=== PATIENT | male | born 1975 | race Caucasian/White ===

== ENCOUNTER 2021-02-17 13:57 | Outpatient (REF) | payer OTHER, SELFPAY | END 2021-02-17 13:58 | disposition home or self-care (01) | LOC: HO.LNP 13:57 | PROVIDERS: Visit Provider Family Medicine | DX: Z20.822 Contact with and (suspected) exposure to COVID-19 (principal); B34.9 Viral infection, unspecified | CPT/HCPCS: U0003; U0005 ==

== ENCOUNTER → 2021-12-30 15:49 | Outpatient (REF) | payer OTHER, SELFPAY | LOC: HO.SL 15:49 | PROVIDERS: PCP Internal Medicine; Visit Provider Nurse Practitioner Family | DX: R06.83 Snoring (principal); R40.0 Somnolence | CPT/HCPCS: 95806 ==

== ENCOUNTER 2023-04-09 10:12 | Emergency (ER) | payer OTHER, SELFPAY ==
[2023-04-09 10:14] VITALS: BP 138/97; BP 150/92; PULSE 66; PULSE 82; RESP 18; TEMP 36.9; O2SAT 100; O2SAT 98; BMI 30.3
--- NOTE | 2023-04-09 11:02 | ED.BACK ---
HPI - Back Pain/Injury General Chief Complaint: Back Pain/Injury Stated Complaint: BACK PAIN, H/O HERNIATED DISC Time Seen by Provider: 04/09/23 10:17 Source: patient, family () and EMS Mode of arrival: EMS Limitations: no limitations History of Present Illness HPI Narrative: 47-year-old male with history of hypertension, hyperlipidemia presents the ER with complaints of lower back pain with radiation down the right leg for the last 3 weeks. Patient reports while working he stepped back missing his step and stepping into a pothole with his right foot causing a fall with subsequent back pain. patient reports he was initially evaluated at [facility]. He was discharged home and has followed up with his primary care doctor. He is having difficulty establishing a plan with workmen's Comp. He has trialed several different oral medications and is currently on gabapentin 300 mg 3 times daily and Flexeril 10 mg at bedtime. He reports had MRI 6 days ago. He has been having continued pain. He has been waiting for his MRI result. He did speak to his primary care doctor this morning on the phone and he was told he has bulging discs in his lumbar spine and is waiting for referral to see a personnel specialist. He was sent into the ER by his primary care for better pain management. He does report that he has pain which radiates down the right leg. He does have numbness and tingling in his right leg. He denies any numbness in the groin. No bowel or bladder incontinence. No fevers or chills. Related Data Home Medications Medication Instructions Recorded Confirmed sertraline 150 mg capsule 150 mg PO DAILY 09/02/22 09/02/22 Previous Rx's Medication Instructions Recorded amoxicillin 500 mg capsule 500 mg PO Q12H 10 days #20 caps 09/02/22 cyclobenzaprine 10 mg tablet 10 mg PO TID PRN muscle spasm #15 04/09/23 tabs ibuprofen 600 mg tablet 600 mg PO Q8H PRN fever or pain 04/09/23 #30 tabs oxycodone 5 mg tablet 5 mg PO Q8H PRN pain #15 tabs 04/09/23 Allergies Allergy/AdvReac Type Severity Reaction Status Date / Time No Known Allergies Allergy Verified 09/02/22 11:36 [No Known Allergies*] Review of Systems Review of Systems: Yes all other systems are reviewed and are negative Constitutional: Constitutional: Reports no additional constitutional complaints, Denies body ache(s), Denies chills, Denies fever(s), Denies headache(s) and Denies weakness Eyes: Eyes: Reports no additional eye complaints and Denies change in vision ENT: Reports system reviewed and no additional complaints, except as documented, Denies dizziness, Denies headache(s), Denies nasal congestion, Denies nasal discharge and Denies neck pain Cardiovascular: Cardiovascular: Reports no additional cardiovascular complaints, Denies chest pain, Denies leg edema and Denies dyspnea Respiratory: Respiratory: Reports no additional respiratory complaints, Denies cough and Denies dyspnea Gastrointestinal: Gastrointestinal: Reports no additional gastrointestinal complaints, Denies abdominal pain, Denies diarrhea, Denies nausea and Denies vomiting Genitourinary: Genitourinary: Denies urinary incontinence Musculoskeletal: Musculoskeletal: Reports no additional musculoskeletal complaints, Reports back pain, Denies arthralgias, Denies joint swelling, Denies neck pain, Denies numbness, Reports radiating pain into limb and Denies tingling Integumentary/Breasts: Skin/Breast: Reports system reviewed and no additional complaints, except as docu and Denies rash Neurologic: Reports system reviewed and no additional complaints, except as documented, Denies Abnormal speech present, Denies dizziness, Denies headache(s), Denies numbness, Denies tingling and Denies weakness PMFSH Past Medical History Attestation statement: The following information was validated with the patient. Source: old records reviewed and nursing notes reviewed Medical History Kidney stones Surgical History Hx of appendectomy Social History Social History Alcohol intake: current Alcohol intake frequency: a few times a month Patient Tobacco Use Status: Never used Tobacco Advance Directives: Yes Advance Directives Information Provided: Yes Advance Directives on File: No Physical Exam Vital Signs: Vital Signs: Last Vital Signs Temp 97.6 F 04/09/23 12:17 Pulse 65 04/09/23 12:17 Resp 16 04/09/23 12:17 BP 140/84 H 04/09/23 12:17 Pulse Ox 98 10/08/23 12:17 O2 Del Method Room Air 04/09/23 12:17 BMI result Body Mass Index 30.3 Const: General: cooperative, healthy appearing, comfortable and no acute distress Orientation/consciousness: patient oriented x3 Limitations: no limitations HEENT: Head: Yes normal to inspection Ears: hearing grossly normal bilaterally General nose exam: Normal external nose present Face and sinus: Yes normal facial exam Mouth: Normal oral and palatal mucosa present Throat: Yes posterior oropharynx normal Eyes: General: appearance normal, both eyes and all related structures Pupils: Equal, round and reactive pupils present Neck: Neck: Yes normal visual inspection Chest: Chest palpation & inspection: normal inspection of the chest Resp: Effort & Inspection: normal respiratory effort Auscultation: clear to auscultation bilaterally Cardio: Rate: regular rate Rhythm: regular rhythm Peripheral pulses: Peripheral pulses 2+ throughout GI: Inspection: Yes normal to inspection Palpation (GI): Soft to palpation and nontender Auscultation: normal bowel sounds : General: Yes no CVA tenderness Back/Spine/Pelvis: Other: There is tenderness the right lumbar paraspinal area no midline tenderness, step-offs deformities. Pain is worsened with right straight leg raise Back: no CVA tenderness Thoracic/Lumbar Spine: thoracic and lumbar spine normal to inspection Skin: General skin exam: no rashes or lesions noted Neuro: General: patient oriented x3, moves all extremities, no focal motor deficits, normal sensation to monofilament and Unable to assess gait Cranial nerves: Yes Equal, round and reactive pupils present Cognition (Neuro): normal cognition Speech: No Abnormal speech present Gait exam (Neuro): Unable to assess gait Motor exam (neuro): 5/5 motor strength present throughout Sensory Exam: Normal double simultaneous stimulation for sensation Deep tendon reflexes (DTR's): Right patellar reflex intensity grade: 2+ and Left patellar reflex intensity grade: 2+ Extrem: General: Yes normal to inspection Course Course Course Narrative: 1230-Pain 1 hr post initial round of medications is improving. will repeat dose for better pain control Reevaluation(s) Reevaluation #1: 1340- Patient feels much improved. Patient is up and ambulatory. Plan for discharge home with pain control and follow-up with primary care. Reviewed worrisome signs and symptoms of when to return to the emergency room. Comfortable plan for discharge home. Medications Administered Discontinued Medications Generic Name Dose Route Start Last Admin Trade Name Alondra PRN Reason Stop Dose Admin Dexamethasone Sodium Phosphate 10 mg 04/09/23 11:21 04/09/23 11:31 Dexamethasone Sod Phosphate 10 Mg/Ml Vial IVPUSH 04/09/23 11:22 10 mg ONCE ONE Administration Ketorolac Tromethamine 30 mg 04/09/23 11:20 04/09/23 11:31 Ketorolac Tromethamine 30 Mg/Ml Vial IVPUSH 04/09/23 11:21 30 mg ONCE ONE Administration Morphine Sulfate 4 mg 04/09/23 11:20 04/09/23 11:33 Morphine Sulfate 4 Mg/Ml Cartridge IVPUSH 04/09/23 11:21 4 mg ONCE ONE Administration Protocol Morphine Sulfate 4 mg 04/09/23 12:34 04/09/23 12:40 Morphine Sulfate 4 Mg/Ml Cartridge IVPUSH 04/09/23 12:35 4 mg ONCE ONE Administration Protocol Ondansetron HCl 4 mg 04/09/23 11:20 04/09/23 11:28 Ondansetron Hcl 4 Mg/2 Ml Vial IVPUSH 04/09/23 11:21 4 mg ONCE ONE Administration Medical Decision Making Medical Decision Making MDM Narrative: 47-year-old male with history of hypertension, hyperlipidemia presents the ER with complaints of lower back pain with radiation down the right leg for the last 3 weeks. Patient reports while working he stepped back missing his step and stepping into a pothole with his right foot causing a fall with subsequent back pain. patient reports he was initially evaluated at [facility]. He was discharged home and has followed up with his primary care doctor. He is having difficulty establishing a plan with workmen's Comp. He has trialed several different oral medications and is currently on gabapentin 300 mg 3 times daily and Flexeril 10 mg at bedtime. He reports had MRI 6 days ago. He has been having continued pain. He has been waiting for his MRI result. He did speak to his primary care doctor this morning on the phone and he was told he has bulging discs in his lumbar spine and is waiting for referral to see a personnel specialist. He was sent into the ER by his primary care for better pain management. He does report that he has pain which radiates down the right leg. He does have numbness and tingling in his right leg. He denies any numbness in the groin. No bowel or bladder incontinence. No fevers or chills. on exam patient has tenderness the right paraspinal lumbar area. This pain is worsened with right straight leg raise. No neurological deficits or red flag symptoms. Patient with recent MRI. Patient is waiting for a referral to see a personnel specialist and has been in close communication with his primary care doctor. He would benefit from better pain management. Therefore we will place an IV and provide Toradol, morphine, decadron for pain control then will re-assess. Differential Diagnosis Differential Diagnoses: The differential diagnosis associated with the presentation includes herniated disc, lumbar radiculopathy low concern for cord compression, cauda equina, epidural abscess, malignancy with no neurological deficits or red flag symptoms, no history of immunocompromise state or IV drug abuse. Admission/Observation Consideration of admission/observation: Escalation of care including admission/observation considered No neurological deficits or red flag symptoms suggest need for emergent MRI, neurosurgery consultation and/or transfer to tertiary care center Independent Historian Clinical information obtained from an independent historian. History obtained from or confirmed by: Spouse and EMS Tests considered The following testing was considered but not selected: No neurological deficits or red flag symptoms suggest need for emergent MRI Prescription Management I considered prescription management with: Pain Medication Discharge Plan Discharge Clinical Impression: Lumbar radiculopathy Patient Disposition: Home, Self-Care Instructions: Lumbar Radiculopathy (ED) Additional Instructions: continue your gabapentin continue with your plan to follow-up with your primary care and outpatient referral Prescriptions: New oxycodone 5 mg tablet 5 mg PO Q8H PRN (Reason: pain) Qty: 15 0RF Rx Instructions: Partial Fill upon patient request. ibuprofen 600 mg tablet 600 mg PO Q8H PRN (Reason: fever or pain) Qty: 30 0RF cyclobenzaprine 10 mg tablet 10 mg PO TID PRN (Reason: muscle spasm) Qty: 15 0RF No Action sertraline 150 mg capsule 150 mg PO DAILY amoxicillin 500 mg capsule 500 mg PO Q12H 10 Days Qty: 20 0RF Referrals: Victor Hugo Guajardo MD, PhD [Physician] - 1 week Stand Alone Forms: Work/School Release
[2023-04-09 12:17] VITALS: BP 140/84; PULSE 65; RESP 16; TEMP 36.4; O2SAT 98
== END 2023-04-09 13:56 | disposition home or self-care (01) ==
PROVIDERS: Emergency Provider Emergency Medicine; PCP Registered Nurse
DX: M54.16 Radiculopathy, lumbar region (principal); M54.50 Low back pain, unspecified; Z79.899 Other long term (current) drug therapy
CPT/HCPCS: 96374; 96375; 96376; 99283; 99284; J1100; J1885; J2270; J2405

== ENCOUNTER 2023-06-29 04:23 | Emergency (ER) | payer OTHER, SELFPAY ==
[2023-06-29 04:35] VITALS: BP 132/73; BP 132/80; PULSE 80; PULSE 86; RESP 20; TEMP 37; O2SAT 97; BMI 31.6
[2023-06-29 05:30] VITALS: BP 131/74; PULSE 88; RESP 20; O2SAT 95
[2023-06-29 05:40] LABS: COVID-19 Test Negative (Negative); IDNOW Serial# 08D9AD1C; IDNOW Serial# BCCEAD1C; Influenza A Negative (Negative); Influenza B2 Negative (Negative)
[2023-06-29 06:03] VITALS: BP 114/60; PULSE 80; RESP 16; TEMP 36.9; O2SAT 97
--- NOTE | 2023-06-29 06:23 | ED.GENADULT ---
HPI - General Adult General Chief complaint: General Medical Stated complaint: back pain Time Seen by Provider: 06/29/23 06:20 Source: patient and family Mode of arrival: ambulatory History of Present Illness HPI narrative: 48-year-old male who underwent back surgery on 06/27 through [facility] and states that the following day he was having worse back pain the knee had prior to the surgery, was also having difficulty with urination and went to [facility] where they evaluated him and start him on Flomax. Patient again comes in today stating that his pain is not adequately managed with the pain medication prescribed on 06/27. Related Data Home Medications Medication Instructions Recorded Confirmed sertraline 150 mg capsule 150 mg PO DAILY 09/02/22 09/02/22 Previous Rx's Medication Instructions Recorded amoxicillin 500 mg capsule 500 mg PO Q12H 10 days #20 caps 09/02/22 cyclobenzaprine 10 mg tablet 10 mg PO TID PRN muscle spasm #15 04/09/23 tabs ibuprofen 600 mg tablet 600 mg PO Q8H PRN fever or pain 04/09/23 #30 tabs oxycodone 5 mg tablet 5 mg PO Q8H PRN pain #15 tabs 04/09/23 Allergies Allergy/AdvReac Type Severity Reaction Status Date / Time No Known Allergies Allergy Verified 06/29/23 05:31 [No Known Allergies*] Review of Systems Review of Systems: Pertinent positives and negatives as stated in HPI [facility] Past Medical History Source: nursing notes reviewed Medical History Kidney stones Surgical History Hx of appendectomy Social History Social History Alcohol intake: current Alcohol intake frequency: a few times a month Patient Tobacco Use Status: Never used Tobacco Smoked in Last 30 Days: No Use of substances other than those prescribed or required for medical reasons: No Advance Directives: No Advance Directives Information Provided: No Physical Exam ED Vital Signs: Vital Signs - 24 hr 06/29/23 04:35 06/29/23 05:30 06/29/23 06:03 Temperature 98.6 F 98.5 F Pulse Rate 86 88 80 Respiratory Rate 20 20 16 Blood Pressure 132/73 131/74 114/60 Pulse Oximetry 97 95 97 Oxygen Delivery Method Room Air Room Air Room Air 06/29/23 07:20 Temperature Pulse Rate 75 Respiratory Rate 20 Blood Pressure 121/65 Pulse Oximetry 95 Oxygen Delivery Method Room Air BMI result Body Mass Index 31.6 VITAL SIGNS: Reviewed. GENERAL: Well developed, well nourished, in no acute distress. HEAD: Normocephalic/atraumatic EYES: PERRLA, EOMI EARS: Ext canals without abnormality NOSE: Nares patent bilateral OROPHARYNX: no oral lesions noted, posterior pharynx clear NECK: Supple, no adenopathy LUNGS: Normal breath sounds. No adventitious sounds or accessory muscle use. SpO2<95> CARDIOVASCULAR: Regular rate and rhythm without noted murmurs ABDOMEN: Soft, non-tender, non-distended with bowel sounds. MUSCULOSKELETAL: No tenderness, deformities, or effusions noted on gross inspection. EXTREMITIES: No cyanosis, clubbing or edema. SKIN: Inspection of the skin reveals no rashes NEUROLOGIC: Alert and oriented x 4. Strength and sensation to light touch were grossly intact x 4, DTRs intact. Medications Administered Discontinued Medications Generic Name Dose Route Start Last Admin Trade Name Freq PRN Reason Stop Dose Admin Oxycodone HCl 10 mg 06/29/23 06:50 06/29/23 07:21 Oxycodone Hcl Immed Release 5 Mg Tablet PO 06/29/23 06:51 10 mg ONCE ONE Administration Medical Decision Making Medical Decision Making [facility] Narrative: 48-year-old male postop day 2 from back surgery at [facility] with increased complaints of back pain, no neuro deficits noted, bladder scan after patient voided demonstrates an empty bladder, bowel testing is negative, gave patient 1 dose of 10 mg of oxycodone. I reached out to [facility] and spoke with Dr. Art who informed me that he has no further recommendations and that he will contact the patient's surgeons at 08:00. Patient is otherwise discharged home and instructed to follow-up by calling the office. Differential Diagnosis Differential Diagnoses: The differential diagnosis associated with the presentation includes Please see the discussion above Admission/Observation Consideration of admission/observation: Escalation of care including admission/observation considered Please see the discussion above Consult Healthcare Provider Management of the patient was discussed with: Technical Sales Consultant Please see the discussion above Lab Data [facility] Lab Attestation statement: I reviewed the patient's lab results. Please see the discussion above Labs: Lab Results 12/28/23 Range/Units 05:17 COVID-19 (NANI) Negative (Negative) COVID-19 Clin Com See Note Influenza Type A (ALEXANDRA) Negative (Negative) Influenza Type B (ALEXANDRA) Negative (Negative) Influenza A & B Note See Note Discharge Plan Discharge Clinical Impression: Postoperative back pain Patient Disposition: Home, Self-Care Instructions: Acute Low Back Pain (ED) Additional Instructions: 1. Tylenol 1000 mg, orally, every 6 hours as needed for pain control. Do not exceed 4000 mg within 24 hours. 2. Ibuprofen 400 mg, orally with milk or food, every 6 hours as needed for pain control. 3. Your prescribed oxycodone, you should take this with the 2 above medications to help improve your pain control. 4. I spoke with Dr. Art from [facility], he was the on-call physician, he will reach out to your surgeons at 08:00. I strongly recommend that you close the loop by calling the office yourself today. Return to the ER for any worsening symptoms. Prescriptions: No Action oxycodone 5 mg tablet 5 mg PO Q8H PRN (Reason: pain) Qty: 15 0RF Rx Instructions: Partial Fill upon patient request. ibuprofen 600 mg tablet 600 mg PO Q8H PRN (Reason: fever or pain) Qty: 30 0RF cyclobenzaprine 10 mg tablet 10 mg PO TID PRN (Reason: muscle spasm) Qty: 15 0RF sertraline 150 mg capsule 150 mg PO DAILY amoxicillin 500 mg capsule 500 mg PO Q12H 10 Days Qty: 20 0RF Referrals: Evangelina Pruitt DNP [Primary Care Provider] -
--- NOTE | 2023-06-29 06:44 | PC.NURSE ---
attempting to get in touch with [facility] regarding pt care
[2023-06-29 07:20] VITALS: BP 121/65; PULSE 75; RESP 20; O2SAT 95
[2023-06-29] MEDS: oxyCODONE HCl Immed Release 5 MG TABLET 10 MG PO (07:21)
--- NOTE | 2023-06-29 07:31 | PC.NURSE ---
pt is alert and oriented, skin pwd, respirations even and unlabored. pt reports having herniated disk surgery on 06/27/23 at [facility] and now is in extreme pain, pt is having difficulties sitting up and walking do to the pain, pt called the sergeant but cant seem to get a hold of them.
[2023-06-29] MEDS: Ketorolac Tromethamine 15 MG/ML VIAL IM (07:41)
== END 2023-06-29 07:46 | disposition home or self-care (01) ==
PROVIDERS: Emergency Provider Student in an Organized Health Care Education/Training Program; PCP Registered Nurse
DX: M54.50 Low back pain, unspecified (principal); Z11.52 Encounter for screening for COVID-19; Z20.822 Contact with and (suspected) exposure to COVID-19
CPT/HCPCS: 87502; 87635; 96372; 99284; J1885